=== PATIENT | male | born 1960 | race Two or more races ===

== ENCOUNTER 2019-04-13 21:38 | Emergency (ER) | payer MEDICARE, OTHER ==
[~2019-04-13] VITALS: Ht 167.6 cm; Wt 72.6 kg
[2019-04-13 21:56] VITALS: BP 162/93
--- NOTE | 2019-04-13 22:04 | Emergency Room Report ---
History of Present Illness General Chief Complaint: Skin Rash/Abscess Source: Patient, Caregiver Present Illness HPI Patient recently used an electric shaver and has now noticed irritation and redness to the under chin area Area was somewhat itchy He feels that the area has spread over the last 1 day Denies any fevers denies any chest pain or shortness of breath he had been using an ointment cream sounds to be hydrocortisone in nature without significant relief Allergies: Coded Allergies: No Known Allergies (Unverified , 04/13/19) Patient History Past Medical History: see triage record Pertinent Family History: none Reviewed Nursing Documentation: PMH: Agreed; PSxH: Agreed Nursing Documentation-PMH Hx Hypertension: Yes Review of Systems All Other Systems: negative except mentioned in HPI Physical Exam Vital Signs Date Time Temp Pulse Resp B/P (MAP) Pulse Ox O2 Delivery O2 Flow Rate FiO2 04/13/19 21:43 97.3 72 15 162/93 (116) 97 Sp02 EP Interpretation: reviewed, normal General Appearance: well appearing, no apparent distress Head: normocephalic, atraumatic Eyes: bilateral eye PERRL, bilateral eye EOMI ENT: hearing grossly normal, normal pharynx, TMs + canals normal, uvula midline Neck: full range of motion, supple, no meningismus, no bony tend Respiratory: lungs clear, normal breath sounds, no rhonchi, no respiratory distress, no retraction, no accessory muscle use Cardiovascular #1: normal peripheral pulses, regular rate, rhythm, no edema, no gallop, no JVD, no murmur Gastrointestinal: normal bowel sounds, non tender, soft, no mass, no organomegaly, non-distended, no guarding, no hernia, no pulsatile mass, no rebound Genitourinary: no CVA tenderness Musculoskeletal: normal inspection Neurologic: oriented x3, responsive, media buyer III-XII nml as tested, motor strength/ tone normal, sensory intact Psychiatric: mood/affect normal Skin: other - Area of irritation under the chin there is erythema, evidence of folliculitis no obvious abscess, no obvious fluctuance involves mainly the area just under the chin approximately 2 x 1 cm Lymphatic: normal inspection, no adenopathy Medical Decision Making Diagnostic Impression: Primary Impression: Folliculitis ER Course Patient has multiple differentials including but not limited to folliculitis, cellulitis, abscess, allergic reaction The area appears to be consistent with folliculitis with early infection Patient will have antibiotic therapy Keeping the area dry and clean I advised him not to shave the area and will have close follow-up Last Vital Signs Date Time Temp Pulse Resp B/P (MAP) Pulse Ox O2 Delivery O2 Flow Rate FiO2 04/13/19 21:56 97.3 89 15 162/93 97 Status: unchanged Disposition: HOME, SELF-CARE Condition: Stable Additional Instructions: Patient is provided with the discharge instructions notified to follow up with primary doctor in the next 2-3 days otherwise return to the er with any worsening symptoms. Please note that this report is being documented using [employer] technology. This can lead to erroneous entry secondary to incorrect interpretation by the dictating instrument. Romy Gibson DO April 13, 2019 22:04
[2019-04-13] MEDS ORDERED: BACITRACIN1 EACH TOPIC (22:05)
[2019-04-13] MEDS ORDERED: CEPHALEXIN500 MG ORAL (22:05)
[2019-04-13 22:14] VITALS: BP 162/93
== END 2019-04-13 23:00 | disposition home or self-care (01) ==
LOC: EMR 22:58
DX: L73.9 Follicular disorder, unspecified (principal); I10 Essential (primary) hypertension
CPT/HCPCS: 99282